=== PATIENT | female | born 1930 | race Caucasian/White ===

== ENCOUNTER → 2016-05-21 | Outpatient (CLI) | payer MEDICARE, OTHER ==
[~2016-05-21] MED LIST: CENTRUM SILVER1 EAC1 PO; DESONIDE 0.05%15 GM TOP; DIFLUCAN200 MG PO; HALFPRIN81 MG PO; LEVOCETIRIZINE D5 MG PO; LIPITOR20 MG PO; MULTI FOR HER1 EACH PO; MYRBETRIQ25 MG PO; NASACORT16.9 ML PO; PREMARIN30 GM VAG; PROBIOTIC1 EAC1 PO; PROBIOTIC1 EAC2 PO; PROPRANOLOL HCL10 MG PO; PROTONIX40 MG PO; RESTASIS1 EACH EYEBOTH; SYNTHROID25 MCG PO; SYSTANE ULTRA 010 ML EYEBOTH; TYLENOL EXTRA500 MG PO; TYLENOL500 MG PO; VALACYCLOVIR1000 MG PO; VALTREX1000 MG PO; VITAMIN B-121000 MC1 PO
== END | disposition short-term general hospital (02) ==
LOC: CLONCO 05-08 07:15
DX: C85.90 Non-Hodgkin lymphoma, unspecified, unspecified site (principal); D50.9 Iron deficiency anemia, unspecified

== ENCOUNTER → 2016-06-07 | Outpatient (CLI) | payer MEDICARE, OTHER | END | disposition short-term general hospital (02) | LOC: CLRHEU 12:22 | DX: K12.1 Other forms of stomatitis (principal); D47.Z9 Other specified neoplasms of uncertain behavior of lymphoid, hematopoietic and related tissue; L43.9 Lichen planus, unspecified ==